=== PATIENT | female | born 1975 | race African-American/Black ===

== ENCOUNTER 2017-02-07 13:04 | Emergency (ER) | payer OTHER ==
[~2017-02-07] VITALS: Ht 175.3 cm; Wt 81.7 kg
--- NOTE | ~2017-02-07 | EKG ---
[facility] [place] [address] ELECTROCARDIOGRAM REPORT Name: KRISTINE lafleur Room #: DEP Ton#: [id number] Admission: 02/07/17 Attend Phys: Discharge: 02/07/17 Date of : 73 Report #: [id number] THIS REPORT FOR: //name// [facility] ED Test Date: 2017-02-07 Test Time: 13:18:58 Pat Name: KRISTINE lafleur Department: Room: Gender: F [employer]: [facility] : 1975 Requested By: Satya Fan Order Number: [id number] MD: Shay Casey Measurements Intervals [place] Rate: 64 P: 50 CA: 183 QRS: 16 QRSD: 84 T: 17 QT: 400 QTc: 413 Interpretive Statements Sinus rhythm RSR' in V1 or V2, right VCD Minimal ST elevation, anterior leads No previous ECG available for comparison Electronically Signed On 02-08-2017 7:43:33 CDT by Shay Casey [email or web address] <ELECTRONICALLY SIGNED> By: Shay Casey MD, [facility] 02/08/17 0743 1318 1318 Shay Casey MD, FACC /EPI
[2017-02-07 14:07] LABS: ABSOLUTE NEUTROPHILS 2.7 thou/uL (1.4-8.2); BASOPHILS 0.6 % (0.0-2.0); EOSINOPHILS 1.6 % (0.0-3.0); HEMATOCRIT 36.4 % (37.0-47.0); LYMPHOCYTES 34.5 % (24.0-44.0); MCH 29.1 pg (26.0-34.0); MCHC 33.1 g/dL (28.0-37.0); PLATELET COUNT 340 thou/uL (150-400); POLYS 56.3 % (36.0-66.0); RBC 4.13 mil/uL (4.20-5.00); RDW 15.6 % (10.5-14.5); WBC 4.9 thou/uL (4.0-11.0)
[2017-02-07 14:10] LABS: MANUAL DIFF NO
[2017-02-07 14:16] LABS: ANION GAP 4 mmol/L (7-16); BUN 5 mg/dL (7-18); CALCIUM 9.5 mg/dL (8.5-10.1); CHLORIDE 103 mmol/L (98-107); CO2 29 mmol/L (21-32); CREATININE 0.7 mg/dL (0.6-1.0); GLUCOSE 101 mg/dL (74-106); POTASSIUM 3.9 mmol/L (3.5-5.1); SODIUM 136 mmol/L (136-145)
[2017-02-07 14:23] LABS: TROPONIN-I < 0.04 ng/mL (<0.04-0.07)
[2017-02-07 16:00] VITALS: BP 107/67
== END 2017-02-07 16:01 | disposition home or self-care (01) ==
LOC: ER 13:04
PROVIDERS: Nurse Practitioner
DX: J06.9 Acute upper respiratory infection, unspecified (principal); R42 Dizziness and giddiness